=== PATIENT | male | born 1995 | race Caucasian/White ===

== ENCOUNTER 2024-09-04 15:16 | Emergency (ER) | payer OTHER ==
[~2024-09-04] VITALS: Ht 180.3 cm; Wt 79.4 kg
[2024-09-04 15:33] VITALS: BP 131/81; TEMP 98.7; O2SAT 99
== END 2024-09-04 19:07 | disposition left against medical advice (07) ==
LOC: ER 15:22
DX: R22.0 Localized swelling, mass and lump, head (principal); Z53.21 Procedure and treatment not carried out due to patient leaving prior to being seen by health care provider